=== PATIENT | male | born 1955 | race African-American/Black ===

== ENCOUNTER 2016-08-05 07:21 | Emergency (ER) | payer BC, OTHER ==
[~2016-08-05] VITALS: Ht 185.4 cm; Wt 87.0 kg
[2016-08-05] MEDS ORDERED: PREDNISONE 20MG TABLET PO ONE (08:15)
[2016-08-05 08:23] VITALS: BP 119/78
== END 2016-08-05 08:33 | disposition home or self-care (01) ==
LOC: ER 07:59
DX: T78.40XA Allergy, unspecified, initial encounter (principal); I10 Essential (primary) hypertension; E78.00 Pure hypercholesterolemia, unspecified
CPT/HCPCS: 99283; J7512

== ENCOUNTER 2018-10-31 07:48 | Emergency (ER) | payer BC ==
[~2018-10-31] VITALS: Ht 185.4 cm; Wt 87.0 kg
[2018-10-31] MEDS ORDERED: [UNRECOGNIZED DRUG - OTHER] (07:59)
[2018-10-31] MEDS ORDERED: ATEN50TA PO (07:59)
[2018-10-31] MEDS ORDERED: SIMV10TA6 PO (08:00)
[2018-10-31] MEDS ORDERED: DIPHENHYDRAMINE 50MG CAPSULE PO ONE (08:30)
[2018-10-31] MEDS ORDERED: FAMOTIDINE 20MG TABLET PO ONE (08:30)
[2018-10-31 08:57] LABS: BASOPHILS % 1.3 % (0.0-2.0); EOSINOPHILS % 0.6 % (0.0-5.0); HEMATOCRIT. 44.2 % (42.0-52.0); HEMOGLOBIN. 15.4 g/dL (14.0-18.0); LYMPHOCYTES % 23.1 % (20.0-50.0); MEAN CORPUSCULAR HEMOGLOBIN 30.3 pg (28.0-32.0); MEAN CORPUSCULAR VOLUME 87.2 fL (80.0-94.0); MEAN PLATELET VOLUME 8.9 fl (7.4-10.4); MONOCYTES % 6.2 % (2.0-8.0); NEUTROPHILS % 68.8 % (40.0-76.0); PLATELET 226 x1000/uL (130-400); RED BLOOD CELL COUNT 5.07 mill/uL (4.7-6.1); RED CELL DISTRIBUTION WIDTH 13.1 % (11.6-14.6)
[2018-10-31 09:03] LABS: CHLORIDE 105 mEq/L (98-107)
[2018-10-31] MEDS ORDERED: PREDNISONE 20MG TABLET PO ONE (09:15)
[2018-10-31 11:55] VITALS: BP 117/69
== END 2018-10-31 11:58 | disposition home or self-care (01) ==
LOC: ER 07:48
DX: T78.3XXA Angioneurotic edema, initial encounter (principal); I10 Essential (primary) hypertension; T46.4X5A Adverse effect of angiotensin-converting-enzyme inhibitors, initial encounter; Y92.098 Other place in other non-institutional residence as the place of occurrence of the external cause
CPT/HCPCS: 36415; 80048; 85025; 99284; J7512; Q0163